=== PATIENT | female | born 1960 | race Two or more races ===

== ENCOUNTER 2016-10-02 15:50 | Emergency (ER) | payer BC ==
[2016-10-02 16:20] VITALS: BP 131/79
--- NOTE | 2016-10-02 18:16 | UC ---
Neck Pain HPI - HPI Summary HPI Summary: SUDDEN ONSET OF LEFT SIDED NECK AND SHOULDER PAIN THIS MORNING ABOUT 4:30AM. WOKE HER FROM SLEEP. IBUPROFEN NOT HELPFUL. ALSO REPORTS PAIN LEFT TMJ AND PAIN WITH SWALLOWING. FEELS LIKE THERE IS SOMETHING STUCK IN HER THROAT BUT SHE IS ABLE TO SWALLOW LIQUIDS AND SOLIDS. HAS BEEN SHOVELLING A LOT OF SNOW RECENTLY. - History of Current Complaint Chief Complaint: UCGeneralIllness Stated Complaint: NECK & JAW PAIN LEFT SIDE Time Seen by Provider: 10/02/16 18:04 Hx Obtained From: Patient, Family/Food Safety Field Specialist - Onset/Duration Of Injury/Symptoms: Hours Timing: Constant Onset/Duration: Sudden Onset, Lasting Hours, Still Present Severity: Severe Pain Intensity: 10 Pain Scale Used: 0-10 Numeric Location: Discrete At: - LEFT NECK AND SHOULDER Character: Sharp, Spasmotic Aggravating Factors: Movement Alleviating Factors: Nothing Associated Signs & Symptoms: Positive: Negative - Allergies/Home Medications Allergies/Adverse Reactions: Allergies Allergy/AdvReac Type Severity Reaction Status Date / Time Meperidine [From Demerol HCl] Allergy Severe Anaphylatic Verified 10/02/16 16:13 Shock Penicillins [PCN] Allergy Intermediate Hives Verified 10/02/16 16:13 lobster Allergy Severe Swelling Uncoded 10/02/16 16:13 Of Face,Lips,& Throat PMH/Surg Hx/FS Hx/Imm Hx Previously Healthy: Yes Endocrine History Of: Denies: Diabetes Cardiovascular History Of: Denies: Hypertension GI/ History Of: Denies: Renal Disease Cancer History Of: Denies: Breast Cancer - Surgical History Surgical History: Yes Surgery Procedure, Year, and Place: LEFT knee surgery. RIGHT ovary removed - Family History Known Family History: Positive: Hypertension, Diabetes Family History: FHx of Afib, CHF, Colon CA - Social History Alcohol Use: Rare Alcohol Amount: 2-3 month Substance Use Type: None Smoking Status (MU): Former Smoker Type: Cigarettes Amount Used/How Often: 1/2 pack Have You Smoked in the Last Year: No - Immunization History Most Recent Influenza Vaccination: 2016 Most Recent Tetanus Shot: UTD Most Recent Pneumonia Vaccination: None Review Of Systems Constitutional: Positive: Negative Skin: Positive: Negative Respiratory: Positive: Negative Cardiovascular: Positive: Negative Gastrointestinal: Positive: Other - GLOBUS SENSATION Musculoskeletal: Positive: Decreased ROM, Myalgia All Other Systems Reviewed And Are Negative: Yes Physical Exam Triage Information Reviewed: Yes Appearance: Well-Appearing, Well-Nourished, Pain Distress - MODERATE Vital Signs: Initial Vital Signs Temp 98.6 F 10/02/16 16:15 Pulse 75 10/02/16 16:15 Resp 18 10/02/16 16:15 BP 131/79 10/02/16 16:15 Pulse Ox 100 10/02/16 16:15 Vital Signs Reviewed: Yes Eyes: Positive: Conjunctiva Clear ENT: Positive: Hearing grossly normal, Pharynx normal, TMs normal Neck: Positive: Supple, Nontender, No Lymphadenopathy Respiratory: Positive: No respiratory distress, No accessory muscle use Cardiovascular: Positive: Pulses Normal Abdomen Description: Positive: Soft Musculoskeletal: Positive: No Edema, ROM Limited @ - NECK, JAW, Other: - TTP LEFT TMJ. LEFT TRAPEZIOUS MUSCLE TENDER AND TIGHT Neurological: Positive: Alert Psychological: Positive: Age Appropriate Behavior Skin: Negative: rashes Neck Pain Course/Dx - Differential Dx/Diagnosis Provider Diagnoses: 1. MUSCLE STRAIN. 2. TMJ Discharge - Discharge Plan Condition: Stable Disposition: HOME Prescriptions: Cyclobenzaprine TAB* [Flexeril TAB*] 10 mg PO BID PRN #30 tab PRN Reason: Pain Hydrocodone-Acetaminophen [Lorcet 5-325 mg] 1 tab PO QID PRN #15 tab MDD 4 PRN Reason: Pain Naproxen [Naproxen EC] 500 mg PO BID PRN #30 tab PRN Reason: Pain Patient Education Materials: Cervical Strain (ED), Muscle Strain (ED), Temporomandibular Disorder (ED) Referrals: Heath Carrion MD [Primary Care Provider] - If Needed Additional Instructions: What are temporomandibular joint disorders? Temporomandibular joint disorders are problems with the jaw joint and the muscles around it. The jaw joint, called the temporomandibular joint, is located in front of the ear where the jawbone connects to your head. To feel the joint, place your finger on your cheek just in front of your ear and then open and close your mouth. When doctors refer to temporomandibular joint disorders, they often call it TMJ , for short. TMJ can be caused by many problems, including arthritis. More often it is due to a combination of stress, jaw clenching, teeth grinding, and other things that strain the jaw joint and the muscles around it. What are the symptoms of TMJ? The main symptom of TMJ is a dull pain in the jaw muscles that doesnt go away. The pain is often on just one side of the face , near the ear. Sometimes the pain also affects the ear, jaw, or back of the neck. It is usually worse when chewing. Some people just have headaches with TMJ. Others might hear a clicking or popping sound or have a crunchy feeling in the joint when they open and close their mouth. The most common presenting signs and symptoms are: - Pain (96.1 percent) - Ear discomfort or dysfunction (82.4 percent) - Headache (79.3 percent) - TMJ discomfort or dysfunction (75.0 percent) Should I see a doctor or nurse? If the pain in your face or jaw is bothering you and does not go away, you should see your doctor or nurse. What tests might I need? There is no single test that can show if you have TMJ. Your doctor or nurse should be able to tell if you have TMJ by learning about your symptoms and doing an exam. Unless the doctor finds something unusual in the exam, most patients will NOT need X-rays or an MRI (an imaging test that creates pictures of the inside of your body). How is TMJ treated? No single treatment for TMJ works for everyone. Most of the time, medicines and simple lifestyle changes can help. Most patients get better over time, even without treatment, so patience is important. Your doctor or nurse will help you find the right mix of treatments for you. He or she might refer you to a dentist who specializes in TMJ. Treatment options include: - Medicines to relieve pain and relax the muscles There are several types of medicines used to treat TMJ. These include nonsteroidal antiinflammatory drugs ( NSAIDs), muscle relaxants, and certain medicines used for depression. ( Medicines for depression can relieve pain even in people who are not depressed. ) Your doctor will decide which medicine or group of medicines is best for you. - Jaw exercises There are simple jaw exercises that seem to help some people. Ask your doctor to show you how to do them. - Bite plates/splints These are special devices that fit in your mouth and keep you from grinding your teeth at night. They are made out of either a hard or soft plastic and might be made specially to fit your mouth. If you have sleep apnea, be sure to tell your doctor as the bite plate or splint might make your sleep apnea worse. If these treatments dont help, your doctor might suggest that you see a specialist, such as an oral surgeon. The specialist might use medicines given by injection (shots) to treat the pain. It is rare that people need surgery for TMJ. Is there anything I can do on my own to feel better? Yes. You might feel better if you: - Avoid doing things that make the pain worse, such opening your mouth too wide. - Eat soft foods that dont require a lot of chewing. - Practice relaxing You can learn methods to relax your body, such as doing deep breathing exercises. Ask your doctor or nurse about these methods. Relaxing the mind can help with how the body feels pain. People can learn to quiet their pain or make it less bothersome. - Use ice packs to ease the pain Use a bag of ice, bag of frozen peas, or cold gel pack once every 2 hours, for 20 minutes each time. Put a towel or cloth between the ice and your skin. Do not put the ice directly on your skin. - Put heat on the painful area Wet a clean washcloth with warm water and put it on the area. When the washcloth cools, reheat it with warm water and put it back on. Repeat these steps for 10 to 15 minutes every few hours. - Avoid stimulants, such as coffee, tea, sebastien, or decongestant medicines, since these can make your anxiety worse.
== END 2016-10-02 18:44 | disposition home or self-care (01) ==
LOC: UCEAST 15:50
DX: S16.1XXA Strain of muscle, fascia and tendon at neck level, initial encounter (principal); X50.3XXA Overexertion from repetitive movements, initial encounter; Y93.H1 Activity, digging, shoveling and raking; Y92.9 Unspecified place or not applicable; M26.609 Unspecified temporomandibular joint disorder, unspecified side; Z88.5 Allergy status to narcotic agent; Z88.0 Allergy status to penicillin; Z87.891 Personal history of nicotine dependence
CPT/HCPCS: 99212; G0463

== ENCOUNTER 2016-10-03 17:27 | Emergency (ER) | payer BC ==
[2016-10-03] MEDS ORDERED: LORazepam INJ* 2 MG/ML 1 ML VIAL IV ONE ×2 (18:14→20:52)
[2016-10-03] MEDS ORDERED: HYDROmorphone* 1 MG/ML 1 ML SYR IV ONE ×2 (18:14→20:52)
[2016-10-03] MEDS ORDERED: Ondansetron INJ* 2 MG/ML VIAL IV ONE (18:14)
[2016-10-03] MEDS ORDERED: NS 0.9% 1000 ML* 1,000 ML IV ONE (18:27)
[2016-10-03 18:36] LABS: Hematocrit 40 % (35-47); Hemoglobin 13.4 g/dl (12.0-16.0); Mean Corpuscular HGB Conc 33 g/dl (31-36); Mean Corpuscular Hemoglobin 29 pg (27-31); Mean Corpuscular Volume 89 fL (80-97); Mean Platelet Volume 10 um3 (7.4-10.4); Red Blood Count 4.54 10^6/ul (4.0-5.4); Red Cell Distribution Width 13 % (10.5-15); White Blood Count 7.6 10^3/ul (3.5-10.8)
[2016-10-03 18:47] LABS: Albumin 3.8 g/dL (3.2-5.2); BUN/Creatinine Ratio 12.6 (8-20); C Reactive Protein 15.35 mg/L (< 5.00); Calcium 8.7 mg/dL (8.6-10.3); EGFR African American 87.3 (>60); EGFR Non-African American 67.9 (>60); Globulin 3.3 g/dL (2-4); Potassium 3.8 mmol/L (3.5-5.0); Total Bilirubin 0.4 mg/dL (0.2-1.0); Total Protein 7.1 g/dL (6.4-8.9)
[2016-10-03] MEDS ORDERED: Iohexol 350* (CONTRAST) 500 ML MDV IV ONE (19:02)
--- NOTE | 2016-10-03 19:46 | RAD ---
Indication: Headaches, evaluate for carotid artery dissection. CTA of the neck was performed after IV contrast administration. Coronal and sagittal reconstructed images were obtained. The origins of the great vessels demonstrates a common origin left common carotid artery and brachiocephalic artery. No evidence of atherosclerosis is noted. The common carotid arteries are normal bilaterally. The internal carotid arteries bilaterally are intact. There are widely patent. No evidence of carotid artery dissection is noted. No evidence of plaque is noted at the carotid bulb. Jugular veins are unremarkable. The vertebral arteries are widely patent. No evidence of atherosclerosis is noted. No evidence of vertebral artery dissection is present. The visualized intracranial vessels are unremarkable. The thyroid lobes demonstrate low density lesion in the right lobe of the thyroid. No mediastinal adenopathy is noted. No definite cervical lymphadenopathy is noted. Lung apices demonstrate no focal nodules. IMPRESSION: No evidence of carotid artery dissection is noted. No evidence of carotid artery stenosis is noted. No evidence of vertebral artery dissection is noted. Right-sided thyroid nodule.
[2016-10-03] MEDS ORDERED: Dexamethasone IV* 4 MG/ML 5 ML VIAL (20 MG) IVPB ONE (20:52)
[2016-10-03] MEDS ORDERED: Ketorolac INJ* 30 MG/ML 1 ML VIAL IV ONE (20:52)
[2016-10-03] MEDS ORDERED: NS 0.9% 1000 ML* 1,000 ML IV SCH (21:00)
[2016-10-04] MEDS ORDERED: predniSONE TAB* 20 MG PO ONE (00:13)
--- NOTE | 2016-10-04 00:24 | ED ---
Renee Dejesus Janilya, scribed for Isael Martinez MD on 10/03/16 at 2020 . Progress - Progress Note Progress Note: PAIN CONTINUED IN ED. GAVE DECADRON, TORADOL, DILAUDID AND ATIVAN. TROPONINS AND EKG CHECKED. CTA DISCUSSED WITH RADIOLOGY. NO ACUTE ABNORMALITY NOTED TO INCLUDE BONY ABNORMALITY. PATIENT IMPROVED AFTER MEDS. DISCUSSED ADMISSION IF NOT IMPROVED SUFFICIENTLY IN ED. PATIENT WISHES TO GO HOME. SHE WILL RETURN IF WORSE OR QUESTIONS OR CONCERNS. DISCHARGE HOME STABLE. Course/Dx - Course Course Of Treatment: Pt was signed out to me from Dr. Castro at shift change. Pt is a 56 y/o female c/o neck pain that's worse with movement and better with hydrocodone. Her neck CTA is negative. However, pt still c/o neck pain at this time (2049). - Diagnoses Provider Diagnoses: Neck pain Diagnostics - Vital Signs Vital Signs Temp Pulse Resp BP Pulse Ox 10/03/16 18:24 18 10/03/16 18:11 89 97 10/03/16 18:10 125/75 10/03/16 17:31 96.8 F 79 18 126/86 100 - Laboratory Lab Results: Lab Results 10/03/16 10/03/16 Range/Units 18:00 18:00 WBC 7.6 (3.5-10.8) 10^3/ul RBC 4.54 (4.0-5.4) 10^6/ul Hgb 13.4 (12.0-16.0) g/dl Hct 40 (35-47) % MCV 89 (80-97) fL MCH 29 (27-31) pg MCHC 33 (31-36) g/dl RDW 13 (10.5-15) % Plt Count 209 (150-450) 10^3/ul MPV 10 (7.4-10.4) um3 Neut % (Auto) 53.8 (38-83) % Lymph % (Auto) 28.7 (25-47) % [place] % (Auto) 13.6 H (1-9) % Eos % (Auto) 3.1 (0-6) % Baso % (Auto) 0.8 (0-2) % Absolute Neuts (auto) 4.1 (1.5-7.7) 10^3/ul Absolute Lymphs (auto) 2.2 (1.0-4.8) 10^3/ul Absolute Monos (auto) 1.0 H (0-0.8) 10^3/ul Absolute Eos (auto) 0.2 (0-0.6) 10^3/ul Absolute Basos (auto) 0.1 (0-0.2) 10^3/ul Absolute Nucleated RBC 0 10^3/ul Nucleated RBC % 0 Sodium 136 (133-145) mmol/L Potassium 3.8 (3.5-5.0) mmol/L Chloride 101 (101-111) mmol/L Carbon Dioxide 27 (22-32) mmol/L Anion Gap 8 (2-11) mmol/L BUN 11 (6-24) mg/dL Creatinine 0.87 (0.51-0.95) mg/dL Est GFR ( Amer) 87.3 (>60) Est GFR (Non-Af Amer) 67.9 (>60) BUN/Creatinine Ratio 12.6 (8-20) Glucose 98 (70-100) mg/dL Calcium 8.7 (8.6-10.3) mg/dL Total Bilirubin 0.40 (0.2-1.0) mg/dL AST 20 (13-39) U/L ALT 17 (7-52) U/L Alkaline Phosphatase 111 H (34-104) U/L C-Reactive Protein 15.35 H (< 5.00) mg/L Total Protein 7.1 (6.4-8.9) g/dL Albumin 3.8 (3.2-5.2) g/dL Globulin 3.3 (2-4) g/dL Albumin/Globulin Ratio 1.2 (1-3) Result Diagrams: 10/03/16 18:00 10/03/16 18:00 Lab Statement: Any lab studies that have been ordered have been reviewed, and results considered in the medical decision making process. - CT Neck CT Interpretation: No Acute Changes - IMPRESSION: No evidence of carotid artery dissection is noted. No evidence of carotid artery stenosis is noted. No evidence of vertebral artery dissection is noted. Right-sided thyroid nodule. CT Interpretation Completed By: Radiologist - EKG 0681 Cardiac Rate: NL - 65 bpm EKG Rhythm: Sinus Rhythm EKG Interpretation: Flipped T waves in III. Flat T waves in AVF. Discharge - Discharge Plan Condition: Stable Disposition: HOME Prescriptions: predniSONE TAB* [Deltasone TAB*] 40 mg PO DAILY #8 tab Referrals: Heath Carrion MD [Primary Care Provider] - Additional Instructions: FOLLOW UP WITH YOUR DOCTOR FOR YOUR NECK PAIN. CONTINUE YOUR PAIN MEDICATIONS/PREDNISONE DIRECTED. RETURN TO THE EMERGENCY DEPARTMENT FOR ANY WORSENING OF YOUR CONDITION; PAIN, FEVER, YOU FEEL ILL, DIFFICULTY WITH BREATHING OR SWALLOWING OR QUESTIONS OR CONCERNS. The documentation as recorded by the Renee payan Janilya accurately reflects the service I personally performed and the decisions made by me, Isael Martinez MD.
[2016-10-04 00:42] VITALS: BP 112/68
--- NOTE | 2016-10-04 08:38 | ED ---
David Dejesus Michael, scribed for Mike Castro MD on 10/03/16 at 1820 . Neck Pain - HPI Summary HPI Summary: 56 y/o female comes to the ED presenting with squeezing neck pain that started one day ago. The pt reports that the neck pain started posteriorly on the left side, but throughout today, the pain has become bilateral and radiates to the anterior neck. She states that the neck pain is aggravated with movement and slightly alleviated with hydrocodone. The pt took hydrocodone at 0700 and 1200 today. She also c/o dysphagia and denies any known trauma. - History of Current Complaint Chief Complaint: EDNeckComplaint Stated Complaint: NOT ABLE TO SWALLOW Time Seen by Provider: 10/03/16 18:06 Hx Obtained From: Patient, Medical Records Onset/Duration Of Injury/Symptoms: Days Mechanism Of Injury: No Known Trauma Timing: Constant Onset/Duration: Gradual Onset, Started days ago, Still Present, Worse Since - today Severity Initially: Mild Severity Currently: Moderate Pain Intensity: 10 Pain Scale Used: 0-10 Numeric Character: Other: - pressure Aggravating Factors: Movement Alleviating Factors: Other: - hydrocodone Associated Signs & Symptoms: Negative: Negative - dysphagia. neck pain. - Allergies/Home Medications Allergies/Adverse Reactions: Allergies Allergy/AdvReac Type Severity Reaction Status Date / Time Meperidine [From Demerol HCl] Allergy Severe Anaphylatic Verified 10/03/16 17:33 Shock Penicillins [PCN] Allergy Intermediate Hives Verified 10/03/16 17:33 lobster Allergy Severe Swelling Uncoded 10/03/16 17:33 Of Face,Lips,& Throat PMH/Surg Hx/FS Hx/Imm Hx Endocrine/Hematology History: Denies: Hx Diabetes Cardiovascular History: Denies: Hx Hypertension History: Denies: Hx Renal Disease - Cancer History Hx Chemotherapy: No Hx Radiation Therapy: No - Surgical History Surgery Procedure, Year, and Place: LEFT knee surgery. RIGHT ovary removed Infectious Disease History: No Infectious Disease History: Reports: Traveled Outside the [place] in Last 30 Days - [place] - Family History Known Family History: Positive: Hypertension, Diabetes Family History: FHx of Afib, CHF, Colon [place] - Social History Occupation: Employed Full-time Lives: With Family Alcohol Use: Rare Alcohol Amount: 2-3 month Substance Use Type: Reports: None Smoking Status (MU): Former Smoker Type: Cigarettes Amount Used/How Often: 1/2 pack Have You Smoked in the Last Year: No Review of Systems Negative: Fever Positive: Other - dysphagia Positive: Other - neck pain All Other Systems Reviewed And Are Negative: Yes Physical Exam Triage Information Reviewed: Yes Vital Signs On Initial Exam: Initial Vitals Temp Pulse Resp BP Pulse Ox 96.8 F 79 18 126/86 100 10/03/16 17:31 10/03/16 17:31 10/03/16 17:31 10/03/16 17:31 10/03/16 17:31 Vital Signs Reviewed: Yes Appearance: Positive: Well-Appearing, No Pain Distress, Well-Nourished Skin: Positive: Warm, Skin Color Reflects Adequate Perfusion, Dry Head/Face: Positive: Normal Head/Face Inspection Eyes: Positive: Normal ENT: Positive: Normal ENT inspection, Other Neck: Positive: Supple, Nontender Respiratory/Lung Sounds: Positive: Clear to Auscultation, Breath Sounds Present Cardiovascular: Positive: RRR Abdomen Description: Positive: Nontender, Soft Bowel Sounds: Positive: Present Musculoskeletal: Positive: Other - mild tender pericervically. no meningeal signs. Neurological: Positive: Normal Psychiatric: Positive: Affect/Mood Appropriate - [place] Coma Scale Coma Scale Total: 15 Diagnostics - Vital Signs Vital Signs Temp Pulse Resp BP Pulse Ox 10/03/16 17:31 96.8 F 79 18 126/86 100 - Laboratory Lab Results: Lab Results 10/03/16 10/03/16 10/03/16 Range/Units 18:00 18:00 21:45 WBC 7.6 (3.5-10.8) 10^3/ul RBC 4.54 (4.0-5.4) 10^6/ul Hgb 13.4 (12.0-16.0) g/dl Hct 40 (35-47) % MCV 89 (80-97) fL MCH 29 (27-31) pg MCHC 33 (31-36) g/dl RDW 13 (10.5-15) % Plt Count 209 (150-450) 10^3/ul MPV 10 (7.4-10.4) um3 Neut % (Auto) 53.8 (38-83) % Lymph % (Auto) 28.7 (25-47) % [place] % (Auto) 13.6 H (1-9) % Eos % (Auto) 3.1 (0-6) % Baso % (Auto) 0.8 (0-2) % Absolute Neuts (auto) 4.1 (1.5-7.7) 10^3/ul Absolute Lymphs (auto) 2.2 (1.0-4.8) 10^3/ul Absolute Monos (auto) 1.0 H (0-0.8) 10^3/ul Absolute Eos (auto) 0.2 (0-0.6) 10^3/ul Absolute Basos (auto) 0.1 (0-0.2) 10^3/ul Absolute Nucleated RBC 0 10^3/ul Nucleated RBC % 0 Sodium 136 (133-145) mmol/L Potassium 3.8 (3.5-5.0) mmol/L Chloride 101 (101-111) mmol/L Carbon Dioxide 27 (22-32) mmol/L Anion Gap 8 (2-11) mmol/L BUN 11 (6-24) mg/dL Creatinine 0.87 (0.51-0.95) mg/dL Est GFR ( Amer) 87.3 (>60) Est GFR (Non-Af Amer) 67.9 (>60) BUN/Creatinine Ratio 12.6 (8-20) Glucose 98 (70-100) mg/dL Lactic Acid 1.0 (0.5-2.0) mmol/L Calcium 8.7 (8.6-10.3) mg/dL Total Bilirubin 0.40 (0.2-1.0) mg/dL AST 20 (13-39) U/L ALT 17 (7-52) U/L Alkaline Phosphatase 111 H (34-104) U/L Troponin I 0.00 (<0.04) ng/mL C-Reactive Protein 15.35 H (< 5.00) mg/L Total Protein 7.1 (6.4-8.9) g/dL Albumin 3.8 (3.2-5.2) g/dL Globulin 3.3 (2-4) g/dL Albumin/Globulin Ratio 1.2 (1-3) Group A Strep Rapid (Negative) 10/03/16 10/04/16 Range/Units 21:45 00:50 WBC (3.5-10.8) 10^3/ul RBC (4.0-5.4) 10^6/ul Hgb (12.0-16.0) g/dl Hct (35-47) % MCV (80-97) fL MCH (27-31) pg MCHC (31-36) g/dl RDW (10.5-15) % Plt Count (150-450) 10^3/ul MPV (7.4-10.4) um3 Neut % (Auto) (38-83) % Lymph % (Auto) (25-47) % [place] % (Auto) (1-9) % Eos % (Auto) (0-6) % Baso % (Auto) (0-2) % Absolute Neuts (auto) (1.5-7.7) 10^3/ul Absolute Lymphs (auto) (1.0-4.8) 10^3/ul Absolute Monos (auto) (0-0.8) 10^3/ul Absolute Eos (auto) (0-0.6) 10^3/ul Absolute Basos (auto) (0-0.2) 10^3/ul Absolute Nucleated RBC 10^3/ul Nucleated RBC % Sodium (133-145) mmol/L Potassium (3.5-5.0) mmol/L Chloride (101-111) mmol/L Carbon Dioxide (22-32) mmol/L Anion Gap (2-11) mmol/L BUN (6-24) mg/dL Creatinine (0.51-0.95) mg/dL Est GFR ( Amer) (>60) Est GFR (Non-Af Amer) (>60) BUN/Creatinine Ratio (8-20) Glucose (70-100) mg/dL Lactic Acid (0.5-2.0) mmol/L Calcium (8.6-10.3) mg/dL Total Bilirubin (0.2-1.0) mg/dL AST (13-39) U/L ALT (7-52) U/L Alkaline Phosphatase (34-104) U/L Troponin I 0.00 (<0.04) ng/mL C-Reactive Protein (< 5.00) mg/L Total Protein (6.4-8.9) g/dL Albumin (3.2-5.2) g/dL Globulin (2-4) g/dL Albumin/Globulin Ratio (1-3) Group A Strep Rapid Negative (Negative) Result Diagrams: 10/03/16 18:00 10/03/16 18:00 Lab Statement: Any lab studies that have been ordered have been reviewed, and results considered in the medical decision making process. Neck Course/Dx - Course Course Of Treatment: Patient is signed out to Dr. Martinez awaiting CT. This is probably neck spasm but I am concerned as she is so symptomatic and her swallowing is affected. - Diagnoses Provider Diagnoses: Neck pain Discharge - Discharge Plan Condition: Stable Disposition: HOME Prescriptions: predniSONE TAB* [Deltasone TAB*] 40 mg PO DAILY #8 tab Referrals: Heath Carrion MD [Primary Care Provider] - Additional Instructions: FOLLOW UP WITH YOUR DOCTOR FOR YOUR NECK PAIN. CONTINUE YOUR PAIN MEDICATIONS/PREDNISONE DIRECTED. RETURN TO THE EMERGENCY DEPARTMENT FOR ANY WORSENING OF YOUR CONDITION; PAIN, FEVER, YOU FEEL ILL, DIFFICULTY WITH BREATHING OR SWALLOWING OR QUESTIONS OR CONCERNS. The documentation as recorded by the David payan Michael accurately reflects the service I personally performed and the decisions made by me, Mike Castro MD.
== END 2016-10-04 00:42 | disposition home or self-care (01) ==
LOC: ED 17:27
DX: M54.2 Cervicalgia (principal); Z87.891 Personal history of nicotine dependence; Z88.0 Allergy status to penicillin
CPT/HCPCS: 36415; 70498; 80053; 83605; 84484; 85025; 86140; 87651; 93005; 96360; 96374; 96375; 96376; 99284; J1170; J1885; J2060; J2405; J7512; Q9967

== ENCOUNTER 2017-09-10 08:21 | Emergency (ER) | payer BC ==
[2017-09-10 08:45] VITALS: BP 130/85
--- NOTE | 2017-09-10 10:17 | UC ---
FLU HPI - HPI Summary HPI Summary: Pt presents with sore throat, body aches, and fatigue since yesterday. 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 She has not taken anything for her symptoms. Denies fever, chills, cough, SOB, chest pain, abdominal pain, n/v/d/c. - History of Current Complaint Chief Complaint: UCGeneralIllness Stated Complaint: SORE THROAT Time Seen by Provider: 09/10/17 10:06 Hx Obtained From: Patient Pain Intensity: 0 - Allergy/Home Medications Allergies/Adverse Reactions: Allergies Allergy/AdvReac Type Severity Reaction Status Date / Time meperidine [From Demerol] Allergy Severe Anaphylatic Verified 09/10/17 08:46 Shock Penicillins Allergy Intermediate Hives Verified 09/10/17 08:46 lobster Allergy Severe Swelling Uncoded 10/03/16 17:33 Of Face,Lips,& Throat Home Medications: Home Medications Citalopram TAB* [Celexa TAB*] 1 tab PO DAILY 09/10/17 [History Confirmed ] buPROPion TAB* [Wellbutrin TAB*] 300 mg PO DAILY 09/10/17 [History Confirmed ] PMH/Surg Hx/FS Hx/Imm Hx GI/ History: Gastroesophageal Reflux Psychological History: Anxiety, Depression - Surgical History Surgical History: Yes Surgery Procedure, Year, and Place: LEFT knee surgery. RIGHT ovary removed - Family History Known Family History: Positive: Hypertension, Diabetes Family History: FHx of Afib, CHF, Colon CA - Social History Occupation: Employed Full-time Lives: With Family Alcohol Use: Rare Alcohol Amount: 2-3 month Substance Use Type: None Smoking Status (MU): Former Smoker Type: Cigarettes Amount Used/How Often: 1/2 pack Have You Smoked in the Last Year: No - Immunization History Most Recent Influenza Vaccination: 2016 Most Recent Tetanus Shot: UTD Most Recent Pneumonia Vaccination: None Review of Systems Constitutional: Fatigue, Other - Body aches Skin: Negative Eyes: Negative ENT: Sore Throat Respiratory: Negative Cardiovascular: Negative Gastrointestinal: Negative All Other Systems Reviewed And Are Negative: Yes Physical Exam Triage Information Reviewed: Yes Appearance: Well-Appearing, No Pain Distress, Well-Nourished Vital Signs: Initial Vital Signs Temp 98.2 F 09/10/17 08:42 Pulse 71 09/10/17 08:42 Resp 20 09/10/17 08:42 BP 130/85 09/10/17 08:42 Pulse Ox 98 09/10/17 08:42 Vital Signs Reviewed: Yes Eyes: Positive: Conjunctiva Clear. Negative: Conjunctiva Inflamed, Discharge ENT: Positive: Hearing grossly normal, Pharynx normal, TMs normal, Uvula midline. Negative: Pharyngeal erythema, Nasal congestion, Nasal drainage, TM bulging, TM dull, TM red, Tonsillar swelling, Tonsillar exudate, Hoarse voice, Sinus tenderness Neck: Positive: Supple, Nontender, No Lymphadenopathy Respiratory: Positive: Chest non-tender, Lungs clear, Normal breath sounds, No respiratory distress, No accessory muscle use Cardiovascular: Positive: RRR, No Murmur, Pulses Normal Abdomen Description: Positive: Nontender, No Organomegaly, Soft. Negative: CVA Tenderness (R), CVA Tenderness (L), Distended, Guarding Bowel Sounds: Positive: Present Neurological: Positive: Alert Psychological: Positive: Age Appropriate Behavior Skin: Negative: rashes Flu Course/Dx - Course Course Of Treatment: POC strep and influenza negative. Given her sick contacts and work environment - will treat as if the flu. - Differential Dx/Diagnosis Provider Diagnoses: Influenza Discharge - Discharge Plan Condition: Stable Disposition: HOME Prescriptions: Oseltamivir CAP* [Tamiflu CAP*] 75 mg PO BID #10 cap Patient Education Materials: Influenza (ED) Referrals: Heath Carrion MD [Primary Care Provider] - Additional Instructions: If you develop a fever, shortness of breath, chest pain, new or worsening symptoms - please call your PCP or go to the ED. Your blood pressure was high at todays visit. Please see your primary provider within 4 weeks for recheck and re-evaluation.
== END 2017-09-10 10:30 | disposition home or self-care (01) ==
LOC: UCEAST 08:21
DX: J11.1 Influenza due to unidentified influenza virus with other respiratory manifestations (principal); K21.9 Gastro-esophageal reflux disease without esophagitis; F41.9 Anxiety disorder, unspecified; F32.9 Major depressive disorder, single episode, unspecified; Z88.5 Allergy status to narcotic agent; Z88.0 Allergy status to penicillin; Z87.891 Personal history of nicotine dependence
CPT/HCPCS: 87502; 87651; 99212; G0463

== ENCOUNTER 2018-08-17 10:13 | Emergency (ER) | payer BC ==
[2018-08-17] MEDS ORDERED: Morphine VIAL* 10 MG/ML 1 ML VIAL IM ONE (10:37)
[2018-08-17] MEDS ORDERED: Ondansetron ODT TAB* 4 MG PO ONE (10:38)
[2018-08-17] MEDS ORDERED: oxyCODONE/Acetamin 5/325 MG* TAB PO ONE (12:12)
[2018-08-17 13:34] VITALS: BP 105/70
--- NOTE | 2018-08-17 17:41 | ED ---
Lower Extremity - HPI Summary HPI Summary: Patient is a 58-year-old female who presents emergency department for evaluation after a mechanical fall that occurred just prior to arrival. Patient states she was leaving her house when she twisted her left ankle and slid down a few steps. Patient denies head injury or loss of consciousness. Patient complaining of left-sided rib pain, left hip and femur pain. Patient states she is unable to ambulate secondary to pain in her left leg. Symptoms are mild to moderate in severity. Movement makes symptoms worse. Nothing makes symptoms better. Denies significant past medical history. - History of Current Complaint Chief Complaint: EDExtremityLower Stated Complaint: FALL/MULTIPLE COMPLAINTS Time Seen by Provider: 08/17/18 10:25 Hx Obtained From: Patient Pain Intensity: 5 Pain Scale Used: 0-10 Numeric - Allergies/Home Medications Allergies/Adverse Reactions: Allergies Allergy/AdvReac Type Severity Reaction Status Date / Time meperidine [From Demerol] Allergy Severe Anaphylatic Verified 08/17/18 10:18 Shock Penicillins Allergy Intermediate Hives Verified 08/17/18 10:18 lobster Allergy Severe Swelling Uncoded 08/17/18 10:18 Of Face,Lips,& Throat PMH/Surg Hx/FS Hx/Imm Hx Previously Healthy: Yes Endocrine/Hematology History: Denies: Hx Diabetes Cardiovascular History: Denies: Hx Hypertension History: Denies: Hx Renal Disease - Cancer History Hx Chemotherapy: No Hx Radiation Therapy: No - Surgical History Surgery Procedure, Year, and Place: LEFT knee surgery. RIGHT ovary removed Infectious Disease History: No Infectious Disease History: Denies: Traveled Outside the [place] in Last 30 Days - Family History Known Family History: Positive: Hypertension, Diabetes, Non-Contributory Family History: FHx of Afib, CHF, Colon CA - Social History Occupation: Employed Full-time Lives: With Family Alcohol Use: Occasionally Alcohol Amount: 2-3 month Substance Use Type: Reports: None Hx Tobacco Use: No Smoking Status (MU): Former Smoker Type: Cigarettes Amount Used/How Often: 1/2 pack Have You Smoked in the Last Year: No Review of Systems Cardiovascular: Negative Respiratory: Negative Gastrointestinal: Negative Positive: Other - Right rib, hip and femur pain Skin: Negative Negative: Weakness, Paresthesia, Numbness All Other Systems Reviewed And Are Negative: Yes Physical Exam Triage Information Reviewed: Yes Vital Signs On Initial Exam: Initial Vitals Temp Pulse Resp BP Pulse Ox 97.6 F 79 19 189/115 98 08/17/18 10:16 08/17/18 10:16 08/17/18 10:16 08/17/18 10:16 08/17/18 10:16 Vital Signs Reviewed: Yes Appearance: Positive: Pain Distress - Pt. lying on bed, appears in significant pain. presen.t Skin: Positive: Warm, Dry Head/Face: Positive: Normal Head/Face Inspection Eyes: Positive: Normal, EOMI Neck: Positive: Supple, Nontender Respiratory/Lung Sounds: Positive: Clear to Auscultation, Breath Sounds Present Cardiovascular: Positive: Normal, RRR Abdomen Description: Positive: Nontender, Soft Musculoskeletal: Positive: Other - Pain to palpation to left anterior mid ribs. Siginficant tenderness with rotation of left hip. No knee or ankle pain. Good pedial pulse. No break in the skin. Neurological: Positive: Normal, Alert, Oriented to Person Place, Time, CN Intact II-III Psychiatric: Positive: Affect/Mood Appropriate Diagnostics - Vital Signs Vital Signs Temp Pulse Resp BP Pulse Ox 08/17/18 13:53 97.3 F 77 20 105/70 96 08/17/18 13:23 78 105/70 96 08/17/18 13:00 64 94 08/17/18 12:53 68 106/77 96 08/17/18 12:47 84 97 08/17/18 12:46 65 20 115/75 96 08/17/18 11:23 61 120/84 96 08/17/18 11:11 63 98 08/17/18 10:52 18 08/17/18 10:23 147/95 08/17/18 10:16 97.6 F 79 19 189/115 98 - Laboratory Lab Statement: Any lab studies that have been ordered have been reviewed, and results considered in the medical decision making process. Lower Extremity Course/Dx - Course Course Of Treatment: Patient presenting for pain to the ribs, hip and upper leg after a mechanical fall. Patient and significant pain when she arrived emergency department. Suspicious for rib or hip fracture. She was given IM morphine for pain. X-rays of chest, ribs, hip and femur are negative for acute findings, reading per radiology. Patient still complaining of pain stating that morphine did not help much. She was given 2 Percocet. After pain control , patient able to ambulate to the bathroom by herself without difficulty and pain has improved. We'll discharge home this short prescription for pain medication for rib contusion and hip sprain. PHYSICAL THERAPY TECHNICIAN reviewed and no red flags noted. Advised close follow-up with PCP. Ice affected areas intermittently. Activity as tolerated. We'll return the ER if symptoms change or worsen. Patient understands and agrees with plan. - Diagnoses Differential Diagnosis/HQI/PQRI: Positive: Contusion, Dislocation, Fracture ( Closed), Sprain, Strain Provider Diagnoses: Hip strain, Rib contusion Discharge - Sign-Out/Discharge Documenting (check all that apply): Patient Departure Patient Received Moderate/Deep Sedation with Procedure: No - Discharge Plan Condition: Improved Disposition: HOME Prescriptions: Hydrocodone/Acetaminophen [Hydrocodone-Acetamin 5-325 mg] 1 each PO Q6H #8 tablet MDD 4 tablets Naproxen [Naproxen 500 mg tab] 500 mg PO BID #20 tablet Patient Education Materials: Hip Sprain (ED), Rib Contusion (ED) Forms: *Work Release Referrals: Heath Carrion MD [Primary Care Provider] - Additional Instructions: Schedule a close follow up appointment with your PCP Take medication as directed Ice affected areas intermittently Activity as tolerated Return to ER if symptoms change or worsen - Billing Disposition and Condition Condition: IMPROVED Disposition: Home
== END 2018-08-17 13:53 | disposition home or self-care (01) ==
LOC: ED 10:13
DX: S76.012A Strain of muscle, fascia and tendon of left hip, initial encounter (principal); S20.211A Contusion of right front wall of thorax, initial encounter; W10.9XXA Fall (on) (from) unspecified stairs and steps, initial encounter; Y92.9 Unspecified place or not applicable; Z88.0 Allergy status to penicillin; Z87.891 Personal history of nicotine dependence
CPT/HCPCS: 99283; A9270-GY; J2270